=== PATIENT | male | born 1995 | race Caucasian/White ===

== ENCOUNTER 2017-04-11 07:42 | Emergency (ER) | payer OTHER ==
[~2017-04-11] VITALS: Ht 177.8 cm; Wt 76.8 kg
[2017-04-11] MEDS ORDERED: FLEXERIL10 MG PO (09:15)
[2017-04-11] MEDS ORDERED: PERCOCET 5/31 TABLET PO (09:16)
[2017-04-11 09:33] VITALS: BP 157/97
== END 2017-04-11 09:33 | disposition home or self-care (01) ==
LOC: EME 07:42
DX: S39.012A Strain of muscle, fascia and tendon of lower back, initial encounter (principal); S30.0XXA Contusion of lower back and pelvis, initial encounter; X50.9XXA Other and unspecified overexertion or strenuous movements or postures, initial encounter; Y93.H2 Activity, gardening and landscaping; F17.200 Nicotine dependence, unspecified, uncomplicated
CPT/HCPCS: 72100; 99281; 99283

== ENCOUNTER 2017-12-05 08:40 | Emergency (ER) | payer OTHER ==
[~2017-12-05] VITALS: Ht 177.8 cm; Wt 65.8 kg
[~2017-12-05 08:40] MED LIST: FLEXERIL10 MG PO; PERCOCET 5/31 TABLET PO
[2017-12-05] MEDS ORDERED: NAPROSYN500 MG PO (10:21)
[2017-12-05 11:25] VITALS: BP 121/71
== END 2017-12-05 11:25 | disposition home or self-care (01) ==
LOC: EME 08:40
DX: S83.91XA Sprain of unspecified site of right knee, initial encounter (principal); W19.XXXA Unspecified fall, initial encounter; F17.210 Nicotine dependence, cigarettes, uncomplicated
CPT/HCPCS: 73564; 99281; 99283